=== PATIENT | female | born 1955 | race Caucasian/White ===

== ENCOUNTER 2025-03-27 15:54 | Emergency (ER) | payer MEDICARE, OTHER ==
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
[2025-03-27 16:53] LABS: ALT 99 U/L (4-34); African American GFR (CKD) >90 (>60 ml/min/1.73 sqM); Albumin 4.1 g/dL (3.5-5.0); Alcohol <10 mg/dL; Anion Gap 9 mmol/L; Blood Urea Nitrogen 17 mg/dL (7-17); Calcium 10.1 mg/dL (8.4-10.2); Carbon Dioxide 24 mmol/L (22-30); Chloride 105 mmol/L (98-107); Glucose 112 mg/dL (74-99); Non-African American GFR(CKD) 88 (>60 ml/min/1.73 sqM); Sodium 138 mmol/L (137-145); Total Bilirubin 0.5 mg/dL (0.2-1.3); Total Protein 6.4 g/dL (6.3-8.2)
[2025-03-27 17:00] LABS: AST 84 U/L (14-36); Alkaline Phosphatase 194 U/L (38-126); Potassium 4.2 mmol/L (3.5-5.1)
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
[2025-03-27] MEDS: SODIUM CHLORIDE 0.9% 1,000 ML IV STA (17:06)
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
[2025-03-27 17:09] LABS: INR 0.9 (<1.2); Prothrombin Time 10.4 sec (10.0-12.5)
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
[2025-03-27 17:12] LABS: Partial Thromboplastin Time 21.6 sec (22.0-30.0)
[2025-03-27] MEDS: ACETAMINOPHEN IV (For NPO) 1,000 MG in EMPTY BAG 1 BAG IVPB STA (17:12)
[2025-03-27 17:29] LABS: Basophils # (A) 0.03 10*3/uL (0.00-0.10); Basophils % (A) 0.4 %; Eosinophils # (A) 0.14 10*3/uL (0.04-0.35); Eosinophils % (A) 2.1 %; HCT 35.6 % (37.2-46.3); HGB 11.7 g/dL (12.0-15.0); MCH 29.9 pg (27.0-32.0); MCHC 32.9 g/dL (32.0-37.0); Mean Platelet Volume 11.2 fL (9.5-12.2); Monocytes # (A) 0.38 10*3/uL (0.20-1.00); Monocytes % (A) 5.6 %; Neutrophils # (A) 4.73 10*3/uL (1.80-7.70); Neutrophils % (A) 69.3 %; Platelet Count 187 10*3/uL (140-440); RBC 3.91 10*6/uL (4.10-5.20); RDW 14.6 % (11.5-14.5); WBC 6.82 10*3/uL (4.50-10.00)
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
[2025-03-27 18:03] LABS: Glucose,Whole Blood 97 mg/dL (70-110)
[2025-03-27 18:06] LABS: Appearance,Urine Clear (Clear); Bilirubin,Urine Negative (Negative); Blood,Urine Negative (Negative); Color,Urine Colorless; Glucose,Urine (UA) Negative (Negative); Ketones,Urine Negative (Negative); Leukocyte Esterase,Urine Negative (Negative); Nitrite,Urine Negative (Negative); Protein,Urine Negative (Negative); Specific Gravity,Urine 1.012 (1.001-1.035); Urobilinogen,Urine <2.0 mg/dL (<2.0)
[2025-03-27] MEDS: ORPHENADRINE 30 MG/ML 2 ML VIAL IVP STA (18:27)
[2025-03-27 18:29] LABS: Cocaine Screen,Urine Not Detected (NotDetected); Phencyclidine Screen,Urine Not Detected (NotDetected); Urn Cannabinoid Scrn Not Detected (NotDetected)
[2025-03-27] MEDS: fentaNYL (PF) 50 MCG/ML 2 ML AMP IVP STA (18:29)
[2025-03-27 18:30] LABS: Amphetamine Screen,Urine Not Detected (NotDetected); Barbiturate Screen,Urine Not Detected (NotDetected); Benzodiazepines Screen,Urine Not Detected (NotDetected); Methadone Screen, Urine Not Detected (NotDetected); Opiate Screen,Urine Not Detected (NotDetected); Oxycodone Screen, Urine Not Detected (NotDetected); Tricyclic Antidepressant,Urine Not Detected (NotDetected)
[2025-03-27] MEDS: LIDOCAINE 4% PATCH TOPICAL ONE (19:29)
[2025-03-27] MEDS: traMADol 50 MG STARTER PACK 3 TAB BTL PO STA (19:29)
[2025-03-27 19:47] VITALS: BP 126/64; PULSE 69; RESP 18; TEMP 98.4
== END 2025-03-27 19:36 | disposition home or self-care (01) ==
LOC: EC 15:54
DX: S30.1XXA Contusion of abdominal wall, initial encounter (principal); S40.011A Contusion of right shoulder, initial encounter; S20.221A Contusion of right back wall of thorax, initial encounter; I11.9 Hypertensive heart disease without heart failure; I48.91 Unspecified atrial fibrillation; I25.10 Atherosclerotic heart disease of native coronary artery without angina pectoris; Z79.01 Long term (current) use of anticoagulants; V43.52XA Car driver injured in collision with other type car in traffic accident, initial encounter; Y92.410 Unspecified street and highway as the place of occurrence of the external cause
CPT/HCPCS: 36415; 93005; 86900; 86901; 80053; 83605; 84484; 85025; 85610; 85730; 86850; 81003; 80306; 80320; 72170; 73060; 73110; 73130; 73564; 71045; 72125; 70450; 71260; 74177; 99285; 96365; 96375; 96361 ×2; J2360; J3010; J0131; Q9967